=== PATIENT | male | born 1990 ===

== ENCOUNTER 2017-04-09 09:33 | Emergency (ER) | payer OTHER ==
[2017-04-09 09:42] VITALS: PULSE 112; TEMP 98.2; O2SAT 98
[2017-04-09 10:09] VITALS: BP 119/84; RESP 18
--- NOTE | 2017-04-09 10:19 | ED PDOC ---
HPI: CCC, URI, Sore Throat Time Seen by Provider: 04/09/17 09:54 Chief Complaint (Nursing): Fever Chief Complaint (Provider): Fever and sore throat History Per: Patient Additional Complaint(s): 26 yo male, no PMH, presents to ED for evaluation of sore throat and fever since Tue. Of note: Pt's son in ED for evaluation of the same symptoms. Past Medical History Reviewed: Nursing Documentation, Vital Signs Vital Signs: Last Vital Signs Temp 98.2 F 04/09/17 10:07 Pulse 112 H 04/09/17 10:07 Resp 18 04/09/17 10:07 BP 119/84 04/09/17 10:07 Pulse Ox 98 04/09/17 10:19 - Medical History PMH: No Chronic Diseases - Surgical History Surgical History: Appendectomy - Family History Family History: States: No Known Family Hx - Living Arrangements Living Arrangements: With Family - Social History Current smoker - smoking cessation education provided: No Ex-Smoker (has not smoked in the last 12 months): No Alcohol: Social Drugs: Denies - Home Medications Home Medications: Ambulatory Orders Medication Instructions Recorded Ibuprofen [Motrin] 600 mg PO Q6 #20 tab 04/09/17 Lidocaine 2% Viscous 15 ml TOP TID PRN #1 bottle 04/09/17 - Allergies Allergies/Adverse Reactions: Allergies Allergy/AdvReac Type Severity Reaction Status Date / Time No Known Allergies Allergy Verified 04/09/17 10:07 Review of Systems ROS Statement: Except As Marked, All Systems Reviewed And Found Negative ENT: Positive for: Throat Pain Physical Exam - Reviewed Nursing Documentation Reviewed: Yes Vital Signs Reviewed: Yes - Physical Exam Appears: Positive for: Well, Non-toxic, No Acute Distress Head Exam: Positive for: ATRAUMATIC, NORMAL INSPECTION, NORMOCEPHALIC Skin: Positive for: Normal Color, Warm, DRY Eye Exam: Positive for: EOMI, Normal appearance, PERRL ENT: Positive for: TM Is/Are (WNL), Pharyngeal Erythema, Other (ulceration noted to soft palate ). Negative for: Tonsillar Exudate, Tonsillar Swelling Neck: Positive for: Normal, Painless ROM Cardiovascular/Chest: Positive for: Regular Rate, Rhythm Respiratory: Positive for: CNT, Normal Breath Sounds Gastrointestinal/Abdominal: Positive for: Normal Exam, Bowel Sounds, Soft Back: Positive for: Normal Inspection Extremity: Positive for: Normal ROM Neurologic/Psych: Positive for: Alert, Oriented - ECG O2 Sat by Pulse Oximetry: 98 Medical Decision Making Medical Decision Making: Strep (-) Medicated with Motrin PO and given Viscous Lido to gargle with Supportive care measures discussed Disposition - Clinical Impression Clinical Impression: Viral pharyngitis - Patient ED Disposition Is Patient to be Admitted: No - Disposition Disposition: Routine/Home Disposition Time: 11:40 Condition: STABLE Prescriptions: Ibuprofen [Motrin] 600 mg PO Q6 #20 tab Lidocaine 2% Viscous 15 ml TOP TID PRN #1 bottle PRN Reason: Pain Instructions: Pharyngitis (ED) Forms: [facility] (German) - POA Present On Arrival: None
== END 2017-04-09 11:26 | disposition home or self-care (01) ==
LOC: H.ER 09:33
DX: R50.9 Fever, unspecified (principal); J02.9 Acute pharyngitis, unspecified